=== PATIENT | female | born 1980 | race Caucasian/White ===

== ENCOUNTER 2016-11-03 09:48 | Emergency (ER) | payer SELFPAY ==
[~2016-11-03] VITALS: Ht 180.3 cm; Wt 140.6 kg
[~2016-11-03 09:48] MED LIST: AZIT500T PO; BENZ100C PO; HTN MED; PROAIR HFA8.5 GM INH
[2016-11-03 10:25] VITALS: BP 160/87
[2016-11-03 10:42] LABS: BILIRUBIN,URINE NEGATIVE (NEG); GLUCOSE,URINE NEGATIVE (NEG); NITRITE,URINE NEGATIVE (NEG); PH,URINE 6.5; PROTEIN,URINE NEGATIVE (NEG-TRACE); UROBILINOGEN,URINE 0.2 mg/dL (0.2 mg/dL)
--- NOTE | 2016-11-03 11:02 | PHYS DOC ---
Past Medical History Past Medical History: Anxiety, Hypertension Additional Past Medical Histor: insomnia Past Surgical History: Cholecystectomy, Alcohol Use: Occasionally Drug Use: None Adult General Chief Complaint Chief Complaint: ABDOMINAL PAIN HPI HPI Patient is a 36 year old female presents to emergency department stating that she has had upper abdominal pain for the last week. She states that she's been taking Zantac, Tums and Rolaids to help with the indigestion as well as sour stomach. She states that she also has some abdominal cramping after each meal. She states that she has had loose stools for the last 2 months. She also states that she started [employer] 2 months ago. Patient states that she feels that she has gas frequently. She does state that she's been having a lot of fruits and vegetables. Patient denies any fever, chills she states that she does not vomit. She just states that she has had nausea and upset stomach feeling. Patient states she did primary care physician who recommended she come to the emergency department. However did provide her with an appointment for tomorrow. Review of Systems Review of Systems Constitutional: Denies fever or chills [] Eyes: Denies change in visual acuity, redness, or eye pain [] HENT: Denies nasal congestion or sore throat [] Respiratory: Denies cough or shortness of breath [] Cardiovascular: No additional information not addressed in HPI [] GI: upper abdominal pain, nausea, denies omiting, bloody stools or diarrhea [] : Denies dysuria or hematuria [] Musculoskeletal: Denies back pain or joint pain [] Integument: Denies rash or skin lesions [] Neurologic: Denies headache, focal weakness or sensory changes [] Endocrine: Denies polyuria or polydipsia [] Current Medications Current Medications Current Medications Medications (Trade) Dose Ordered Sig/[facility] Start Time Stop Time Status Last Admin Dose Admin Sucralfate (Carafate) 1 gm 1X ONCE 11/03/16 12:00 11/03/16 12:01 Allergies Allergies Allergies Coded Allergies Type Severity Reaction Last Updated Verified No Known Drug Allergies 08/07/15 No Physical Exam Physical Exam Constitutional: Well developed, well nourished, no acute distress, non-toxic appearance. [] HENT: Normocephalic, atraumatic, bilateral external ears normal, oropharynx moist, no oral exudates, nose normal. [] Eyes: PERRLA, EOMI, conjunctiva normal, no discharge. [] Neck: Normal range of motion, no tenderness, supple, no stridor. [] Cardiovascular:Heart rate regular rhythm, no murmur [] Lungs & Thorax: Bilateral breath sounds clear to auscultation [] Abdomen: Bowel sounds normal, soft, mid upper abdominal tenderness, no masses, no pulsatile masses. [] Skin: Warm, dry, no erythema, no rash. [] Back: No tenderness Extremities: No tenderness, no cyanosis, no clubbing, ROM intact, no edema. [] Neurologic: Alert and oriented X 3, normal motor function, normal sensory function, no focal deficits noted. [] Psychologic: Affect normal, judgement normal, mood normal. [] Current Patient Data Vital Signs Vital Signs Date Time Temp Pulse Resp B/P (MAP) Pulse Ox O2 Delivery O2 Flow Rate FiO2 11/03/16 10:25 99.0 87 22 160/87 (111) 96 99.0 Lab Values Laboratory Tests Test 11/03/16 10:18 Urine Collection Type Void Urine Color Yellow Urine Clarity Cloudy Urine pH 6.5 Urine Specific [place] >=1.030 Urine Protein Negative mg/dL (NEG-TRACE) Urine Glucose (UA) Negative mg/dL (NEG) Urine Ketones (Stick) Negative mg/dL (NEG) Urine Blood Moderate (NEG) Urine Nitrite Negative (NEG) Urine Bilirubin Negative (NEG) Urine Urobilinogen Dipstick 0.2 mg/dL (0.2 mg/dL) Urine Leukocyte Esterase Negative (NEG) Urine RBC 0 /HPF (0-2) Urine WBC 1-4 /HPF (0-4) Urine Squamous Epithelial Cells Mod /LPF Urine Amorphous Sediment Present /HPF Urine Bacteria Few /HPF (0-FEW) Urine Mucus Marked /LPF EKG EKG [] Radiology/Procedures Radiology/Procedures [] Course & Med Decision Making Course & Med Decision Making Pertinent Labs and Imaging studies reviewed. (See chart for details) Urine was negative, was negative. Patient was awaiting for an acute abdominal series. She chose to leave AGAINST MEDICAL ADVICE. Patient had been encouraged to use Nexium [id number]. Patient states that she'll follow up with her primary care physician tomorrow. [] Dragon Disclaimer Dragon Disclaimer This electronic medical record was generated, in whole or in part, using a voice recognition dictation system. Departure Departure Impression: Primary Impression: Left against medical advice Additional Impression: Abdominal pain Disposition: 07 AGAINST MEDICAL ADVICE Condition: STABLE Referrals: UNKNOWN PCP NAME (PCP) Problem Qualifiers ALFONSO GRIGGS APRN November 03, 2016 11:02
[2016-11-03 11:04] LABS: BACTERIA,URINE FEW /HPF (0-FEW); RBC,URINE 0 /HPF (0-2); SQUAMOUS EPITHELIAL CELL,UR MOD /LPF
[2016-11-03] MEDS ORDERED: SUCRALFATE 1 GM/10 ML ORAL.SUSP. PO ONE (12:00)
== END 2016-11-03 11:55 | disposition left against medical advice (07) ==
LOC: ER 09:48
DX: R10.10 Upper abdominal pain, unspecified (principal); F41.9 Anxiety disorder, unspecified; I10 Essential (primary) hypertension; G47.00 Insomnia, unspecified; Z90.49 Acquired absence of other specified parts of digestive tract
CPT/HCPCS: 81001; 81025; 84703; 99283

== ENCOUNTER 2017-02-21 01:51 | Emergency (ER) | payer SELFPAY ==
[~2017-02-21] VITALS: Ht 180.3 cm; Wt 136.1 kg
[2017-02-21 02:35] VITALS: BP 151/90
[2017-02-21] MEDS ORDERED: IPRATRPIUM/ALBUTEROL 0.5/2.5MG 3 ML NEBU. NEB ONE (02:45)
[2017-02-21] MEDS ORDERED: BENZ100C PO (03:11)
[2017-02-21] MEDS ORDERED: PROAIR HFA8.5 GM INH (03:11)
--- NOTE | 2017-02-21 03:11 | PHYS DOC ---
Past Medical History Past Medical History: Anxiety, Hypertension Additional Past Medical Histor: insomnia Past Surgical History: Cholecystectomy, Additional Information: non smoker Alcohol Use: Occasionally Drug Use: None Adult General Chief Complaint Chief Complaint: COUGH HPI HPI Patient is a 37 year old female who presents with cough. States the cough for at least a week now. She initially had a temperature but none now. She states "everyone in my house is sick and now it's my turn". She is not coughing up anything, no hemoptysis. She has a slight sore throat. No earache. No shortness of air or chest pain. No leg pain or swelling. Non smoker. Review of Systems Review of Systems Constitutional: Denies fever or chills Eyes: Denies change in visual acuity, redness, or eye pain HENT: Denies nasal congestion or sore throat Respiratory: POS cough ; no shortness of breath Cardiovascular: No chest pain GI: Denies abdominal pain, nausea, vomiting, bloody stools or diarrhea : Denies dysuria or hematuria Musculoskeletal: Denies back pain or joint pain Integument: Denies rash or skin lesions Neurologic: Denies headache, focal weakness or sensory changes Current Medications Current Medications Current Medications Medications (Trade) Dose Ordered Sig/Brad Start Time Stop Time Status Last Admin Dose Admin Albuterol/ Ipratropium (Duoneb) 3 ml 1X ONCE 02/21/17 02:45 02/21/17 03:01 DC 02/21/17 02:47 3 ML Benzonatate (Tessalon Perle) 100 mg 1X ONCE 02/21/17 03:15 02/21/17 03:16 Allergies Allergies Allergies Coded Allergies Type Severity Reaction Last Updated Verified No Known Drug Allergies 08/07/15 No Physical Exam Physical Exam Constitutional: Well developed, well nourished, no acute distress, non-toxic appearance. HENT: Normocephalic, atraumatic, TM clear bilaterally; bilateral external ears normal, oropharynx moist, no oral exudates, nose normal. Eyes: PERRLA, EOMI, conjunctiva normal, no discharge. Neck: Normal range of motion, no tenderness, supple, no stridor. Cardiovascular:Heart rate regular rhythm, no murmur Lungs & Thorax: Bilateral breath sounds with faint end-expiratory wheeze. Skin: Warm, dry, no erythema, no rash. Extremities: No tenderness, no cyanosis, no clubbing, ROM intact, no edema. Neurologic: Alert and oriented X 3, normal motor function, normal sensory function, no focal deficits noted. Current Patient Data Vital Signs Vital Signs Date Time Temp Pulse Resp B/P (MAP) Pulse Ox O2 Delivery O2 Flow Rate FiO2 02/21/17 02:50 96 Room Air 02/21/17 02:35 97.5 96 20 97.5 Course & Med Decision Making Course & Med Decision Making Patient's complaints and physical exam are consistent with a viral bronchial infection. As per the recommendations from the CDC she does not meet criteria for an antibiotic at this time. A DuoNeb treatment was dosed here in the ED along with Tessalon Perles. She'll be sent home with a prescription for an inhaler and Tessalon Perles. She does not improve she needs follow-up with her primary care doctor. I have spoken with the patient and/or caregivers. I have explained the patient' s condition, diagnosis and treatment plan based on the information available to me at this time. I have answered the patient's and/or caregiver's questions and addressed any concerns. The patient and/or caregivers have as good an understanding of the patient's diagnosis, condition and treatment plan as can be expected at this point. The patient's condition is stable and appropriate for discharge from the emergency department. The patient will pursue further outpatient evaluation with the primary care physician or other designated or consulting physician as outlined in the discharge instructions. The patient and/or caregivers are agreeable to this plan of care and follow-up instructions have been explained in detail. The patient and/or caregivers have received these instructions in written format and have expressed an understanding of the discharge instructions. The patient and/or caregivers are aware that any significant change in condition or worsening of symptoms should prompt an immediate return to this or the closest emergency department or a call to 911. Yaneth Disclaimer Dragon Disclaimer This electronic medical record was generated, in whole or in part, using a voice recognition dictation system. Departure Departure Impression: Primary Impression: Cough Disposition: 01 HOME, SELF-CARE Condition: STABLE Referrals: UNKNOWN PCP NAME (PCP) Patient Instructions: Cough, Adult Scripts Albuterol Sulfate (PROAIR HFA INHALER) 8.5 Gm Hfa.aer.ad 1 PUFF INH PRN Q6HRS Y for SHORTNESS OF BREATH, #1 INHALER 0 Refills Prov: YOU CORREA MD 02/21/17 Benzonatate (TESSALON PERLE) 100 Mg Capsule 1 CAP PO TID, #30 CAP Prov: YOU CORREA MD 02/21/17 YOU CORREA MD Feb 21, 2017 03:11
[2017-02-21] MEDS ORDERED: BENZONATATE 100 MG CAPSULE. PO ONE (03:15)
== END 2017-02-21 03:28 | disposition home or self-care (01) ==
LOC: ER 01:51
DX: R05 Cough (principal); J02.9 Acute pharyngitis, unspecified; F41.9 Anxiety disorder, unspecified; I10 Essential (primary) hypertension; G47.00 Insomnia, unspecified
CPT/HCPCS: 94250; 94640; 99283; J7620

== ENCOUNTER 2017-07-03 17:14 | Emergency (ER) | payer SELFPAY | END 2017-07-03 18:11 | disposition home or self-care (01) | LOC: ER 17:14 | DX: J20.9 Acute bronchitis, unspecified (principal); I10 Essential (primary) hypertension; F41.9 Anxiety disorder, unspecified; G47.00 Insomnia, unspecified; Z90.49 Acquired absence of other specified parts of digestive tract | CPT/HCPCS: 99283 ==

== ENCOUNTER 2017-07-10 23:19 | Emergency (ER) | payer SELFPAY ==
[2017-07-10] MEDS: IPRATRPIUM/ALBUTEROL 0.5/2.5MG 3 ML NEBU. NEB (23:40)
[2017-07-10 23:46] LABS: URINE HCG POC HCG NEGATIVE (Negative)
[2017-07-10 23:52] LABS: INFLUENZA A PATIENT NEGATIVE (NEGATIVE); INFLUENZA B PATIENT NEGATIVE (NEGATIVE); OBC FLU VALID
[2017-07-11] MEDS: BENZONATATE 100 MG CAPSULE. PO
== END 2017-07-11 00:16 | disposition home or self-care (01) ==
LOC: ER 07-11 00:16
DX: J40 Bronchitis, not specified as acute or chronic (principal); I10 Essential (primary) hypertension; F41.9 Anxiety disorder, unspecified; G47.00 Insomnia, unspecified; Z90.49 Acquired absence of other specified parts of digestive tract
CPT/HCPCS: 71046; 81025; 87804; 87804-59; 94640; 99285-25; J7620

== ENCOUNTER 2017-09-21 18:27 | Emergency (ER) | payer SELFPAY ==
[2017-09-21 19:24] LABS: URINE HCG POC HCG NEGATIVE (Negative)
[2017-09-21 19:39] LABS: BILIRUBIN,URINE NEGATIVE (NEG); CLARITY,URINE CLOUDY; COLOR,URINE YELLOW; GLUCOSE,URINE NEGATIVE (NEG); NITRITE,URINE NEGATIVE (NEG); PH,URINE 5.5; PROTEIN,URINE NEGATIVE (NEG-TRACE); UROBILINOGEN,URINE 0.2 mg/dL (0.2 mg/dL)
[2017-09-21 19:44] LABS: ADD MAN DIFF? NO
[2017-09-21 19:47] LABS: BASO # 0.1 x10^3/uL (0.0-0.2); BASO % 1 % (0-3); EOS # 0.1 x10^3/uL (0.0-0.7); EOS % 1 % (0-3); HEMATOCRIT 41.3 % (36.0-47.0); HEMOGLOBIN 13.7 g/dL (12.0-15.5); LYMPH # 3.7 x10^3/uL (1.0-4.8); LYMPH % 32 % (24-48); MEAN CORPUSCULAR HEMOGLOBIN 26 pg (25-35); MEAN CORPUSCULAR HGB CONC 33 g/dL (31-37); MEAN CORPUSCULAR VOLUME 79 fL (79-100); MONO # 0.7 x10^3/uL (0.0-1.1); MONO % 7 % (0-9); NEUT # 6.8 x10^3uL (1.8-7.7); NEUT % 59 % (31-73); PLATELET COUNT 394 x10^3/uL (140-400); RED BLOOD COUNT 5.25 x10^6/uL (3.50-5.40); RED CELL DISTRIBUTION WIDTH 14.7 % (11.5-14.5); WHITE BLOOD COUNT 11.5 x10^3/uL (4.0-11.0)
[2017-09-21 19:49] LABS: BACTERIA,URINE MODERATE /HPF (0-FEW); RBC,URINE 0 /HPF (0-2); SQUAMOUS EPITHELIAL CELL,UR MANY /LPF
[2017-09-21 20:00] LABS: ANION GAP 13 (6-14); BLOOD UREA NITROGEN 14 mg/dL (7-20); BUN/CREATININE RATIO 18 (6-20); CALCIUM 9.3 mg/dL (8.5-10.1); CARBON DIOXIDE 23 mmol/L (21-32); CHLORIDE 101 mmol/L (98-107); CREATININE 0.8 mg/dL (0.6-1.0); GFR 80.7; GLUCOSE 103 mg/dL (70-99); POTASSIUM 3.7 mmol/L (3.5-5.1); SODIUM 137 mmol/L (136-145)
[2017-09-21 20:05] LABS: ALBUMIN 3.6 g/dL (3.4-5.0); ALBUMIN/GLOBULIN RATIO 0.8 (1.0-1.7); ALK PHOS 67 U/L (46-116); ALT (SGPT) 33 U/L (14-59); AST (SGOT) 16 U/L (15-37); TOTAL BILIRUBIN 0.3 mg/dL (0.2-1.0); TOTAL PROTEIN 8.1 g/dL (6.4-8.2)
== END 2017-09-21 22:01 | disposition home or self-care (01) ==
LOC: ER 18:27
DX: N39.0 Urinary tract infection, site not specified (principal); F41.9 Anxiety disorder, unspecified; I10 Essential (primary) hypertension; E66.9 Obesity, unspecified; G47.00 Insomnia, unspecified; Z68.41 Body mass index [BMI] 40.0-44.9, adult; Z90.49 Acquired absence of other specified parts of digestive tract
CPT/HCPCS: 36415; 76830; 76856; 80053; 81001; 81025; 84702; 85025; 87086; 99285-25

== ENCOUNTER 2017-10-10 20:37 | Emergency (ER) | payer SELFPAY ==
[2017-10-10 21:53] LABS: ADD MAN DIFF? NO
[2017-10-10 21:56] LABS: BASO # 0.1 x10^3/uL (0.0-0.2); BASO % 1 % (0-3); EOS # 0.1 x10^3/uL (0.0-0.7); EOS % 2 % (0-3); HEMATOCRIT 39.6 % (36.0-47.0); HEMOGLOBIN 13.2 g/dL (12.0-15.5); LYMPH # 3.6 x10^3/uL (1.0-4.8); LYMPH % 37 % (24-48); MEAN CORPUSCULAR HEMOGLOBIN 26 pg (25-35); MEAN CORPUSCULAR HGB CONC 33 g/dL (31-37); MEAN CORPUSCULAR VOLUME 78 fL (79-100); MONO # 0.7 x10^3/uL (0.0-1.1); MONO % 8 % (0-9); NEUT # 5.1 x10^3uL (1.8-7.7); NEUT % 52 % (31-73); PLATELET COUNT 380 x10^3/uL (140-400); RED BLOOD COUNT 5.06 x10^6/uL (3.50-5.40); RED CELL DISTRIBUTION WIDTH 14.1 % (11.5-14.5); WHITE BLOOD COUNT 9.7 x10^3/uL (4.0-11.0)
[2017-10-10] MEDS ORDERED: 0.9 % SODIUM CHLORIDE 10 ML DISP.SYRIN. IV (22:00)
[2017-10-10 22:08] LABS: ANION GAP 9 (6-14); BLOOD UREA NITROGEN 18 mg/dL (7-20); BUN/CREATININE RATIO 26 (6-20); CALCIUM 8.7 mg/dL (8.5-10.1); CARBON DIOXIDE 27 mmol/L (21-32); CHLORIDE 102 mmol/L (98-107); CREATININE 0.7 mg/dL (0.6-1.0); GFR 94.2; GLUCOSE 97 mg/dL (70-99); POTASSIUM 3.6 mmol/L (3.5-5.1); SODIUM 138 mmol/L (136-145)
[2017-10-10 22:09] LABS: D-DIMER < 0.27 ug/mlFEU (0.00-0.50)
[2017-10-10 22:14] LABS: ALBUMIN 3.5 g/dL (3.4-5.0); ALBUMIN/GLOBULIN RATIO 0.9 (1.0-1.7); ALK PHOS 58 U/L (46-116); ALT (SGPT) 29 U/L (14-59); AST (SGOT) 19 U/L (15-37); LIPASE 144 U/L (73-393); TOTAL BILIRUBIN 0.2 mg/dL (0.2-1.0); TOTAL PROTEIN 7.6 g/dL (6.4-8.2)
[2017-10-10 22:15] LABS: TROPONINI < 0.017 ng/mL (0.000-0.055)
[2017-10-10 22:23] LABS: CKMB MASS 0.5 ng/mL (0.0-3.6); CREATINE KINASE 69 U/L (26-192)
[2017-10-10 22:23] LABS: NT-PRO BNP 25 pg/mL (0-124)
[2017-10-10] MEDS: ASPIRIN CHEWABLE 81 MG TABLET. PO (22:41)
[2017-10-10 23:49] LABS: URINE HCG POC HCG NEGATIVE (Negative)
[2017-10-10 23:49] LABS: BILIRUBIN,URINE NEGATIVE (NEG); COLOR,URINE YELLOW; GLUCOSE,URINE NEGATIVE (NEG); NITRITE,URINE NEGATIVE (NEG); PROTEIN,URINE NEGATIVE (NEG-TRACE); UROBILINOGEN,URINE 0.2 mg/dL (0.2 mg/dL)
[2017-10-10 23:51] LABS: TROPONIN BY ISTAT 0.01 ng/ml (<0.08)
[2017-10-10 23:52] LABS: CLARITY,URINE CLEAR
[2017-10-10 23:56] LABS: BACTERIA,URINE MODERATE /HPF (0-FEW); RBC,URINE 0 /HPF (0-2); SQUAMOUS EPITHELIAL CELL,UR MANY /LPF; WBC,URINE RARE /HPF (0-4)
== END 2017-10-11 | disposition home or self-care (01) ==
LOC: ER 10-11
DX: R07.89 Other chest pain (principal); I10 Essential (primary) hypertension; F41.9 Anxiety disorder, unspecified; E66.9 Obesity, unspecified
CPT/HCPCS: 36415; 71045; 80053; 81001; 81025; 82553; 83690; 83880; 84484; 85025; 85379; 87086; 93005; 99285-25

== ENCOUNTER 2018-10-02 16:39 | Emergency (ER) | payer OTHER ==
[~2018-10-02] VITALS: Ht 180.3 cm; Wt 134.3 kg
[~2018-10-02 16:39] MED LIST changes: +ALBU2.5V8 INH; +AZIT250T PO; +FAMO40TA57 PO; +GUAI118L20 PO; +PRED50TA PO; -PROAIR HFA8.5 GM INH; +PROAIR RESPICL90 MCG IH; +SULF1TAB24 PO
[2018-10-02 18:06] VITALS: BP 133/74
[2018-10-02] MEDS ORDERED: HYDR-3164 PO (18:28)
--- NOTE | 2018-10-02 18:29 | PHYS DOC ---
Past Medical History Past Medical History: Anxiety, Hypertension, Other Additional Past Medical Histor: insomnia, OBESITY (GIN THOMPSON APRN) Past Surgical History: Cholecystectomy, , Other Additional Past Surgical Histo: gastric bypass (GIN THOMPSON APRN) Alcohol Use: None Drug Use: None (GIN THOMPSON APRN) Adult General Chief Complaint Chief Complaint: SORE THROAT HPI HPI 38-year-old female presents to ER via POV for complaints of sore throat and generalized fatigue. She reports her symptoms started on Tuesday and her daughter was just diagnosed with strep throat. She reports her throat has been swollen but she has been able to swallow. She denies chest pain, palpitations, shortness of air, or cough. She denies any other flulike illness. She reports she has taken Tylenol with minimal relief in pain. She reports she does not have regular menstrual cycles d/t control- no concern for preg. (GIN THOMPSON APRN) Review of Systems Review of Systems Constitutional: Reports chills and generalized fatigue/achy feeling Eyes: Denies change in visual acuity, redness, or eye pain [] HENT: Denies nasal congestion. Reports sore/swollen throat- denies inability to swallow secretions. Reports rt ear pressure/ache Respiratory: Denies cough or shortness of breath [] Cardiovascular: No additional information not addressed in HPI [] GI: Denies abdominal pain, nausea, vomiting, bloody stools or diarrhea [] : Denies urinary sxs Musculoskeletal: Denies back/neck pain or joint pain [] Integument: Denies rash or skin lesions [] Neurologic: Denies headache, focal weakness or sensory changes. Denies dizziness Endocrine: Denies polyuria or polydipsia [] All other systems were reviewed and found to be within normal limits, except as documented in this note. (GIN THOMPSON APRN) Current Medications Current Medications Current Medications Medications (Trade) Dose Ordered Sig/Brad Start Time Stop Time Status Last Admin Dose Admin Dexamethasone Sodium Phosphate (Decadron) 10 mg 1X ONCE 10/02/18 18:30 10/02/18 18:31 DC 10/02/18 18:38 10 MG Penicillin G Benzathine (Bicillin L-A) 1,200,000 unit 1X ONCE 10/02/18 18:30 10/02/18 18:31 DC 10/02/18 18:40 1,200,000 UNIT (NAEL HYATT DO) Allergies Allergies Allergies Coded Allergies Type Severity Reaction Last Updated Verified No Known Drug Allergies 08/07/15 No (NAEL HYATT DO) Physical Exam Physical Exam Constitutional: Well developed, well nourished, fatigued appearance, non-toxic appearance. [] HENT: Normocephalic, atraumatic, rt ear exam NL- lt ear with mild erythema at TM without bulging/perforation and no drainage in canal, oropharynx moist- bilat tonsillar swelling/erythema- rt tonsil more swollen with exudate- uvula midline with mild erythema- no exudate, nose normal. No muffled voice or pooling of secretions Eyes: Pupils equal, conjunctiva normal, no discharge. [] Neck: Normal range of motion, no tenderness or nuchal rigidity, supple, no stridor/gross adenopathy Cardiovascular: Heart rate regular rhythm, no murmur [] Lungs & Thorax: Bilateral breath sounds clear to auscultation- resp. equal/ nonlabored Abdomen: Bowel sounds normal, soft, no tenderness Skin: Warm, dry, no erythema, no rash. [] Back: No tenderness, no CVA tenderness. [] Extremities: No tenderness, no cyanosis, no clubbing, ROM intact, no edema. [] Neurologic: Alert and oriented X 3, normal motor function, normal sensory function, no focal deficits noted. [] Psychologic: Affect normal, judgement normal, mood normal. [] (GIN THOMPSON APRN) Current Patient Data Vital Signs Vital Signs Date Time Temp Pulse Resp B/P (MAP) Pulse Ox O2 Delivery O2 Flow Rate FiO2 10/02/18 18:06 99.8 98 20 133/74 (93) 98 Room Air 99.8 (NAEL HYATT DO) EKG EKG [] (GIN THOMPSON APRN) Radiology/Procedures Radiology/Procedures [] (GIN THOMPSON APRN) Course & Med Decision Making Course & Med Decision Making She was evaluated in the ER for complaints of sore throat and generalized fatigue. Patient's daughter was just diagnosed with strep throat and on exam patient had swelling to the tonsils with right side worse than the left. Patient had exudate on her right tonsil without visible peritonsillar abscess. Patient had no gross adenopathy on exam. Patient was given option for treatment while in the ER or prescription for home- she opted for IM penicillin injection while in the ER. She is comfortable with no strep test with this provider's finding on exam of swelling and exudate to right tonsil. She has had previous gastric bypass so is avoiding NSAIDs. Will give patient a dose of Decadron while in the ER and provide prescription for [place] tablets for home as she drove. Patient encouraged to do warm salt swishes.Education provided on signs and symptoms to return to ER. Discharge instructions were discussed. Patient to follow-up with primary care physician if symptoms persist or with any concerns. Patient while in the ER was having no pooling of secretions, difficulty swallowing, or respiratory distress. She was nontoxic in appearance. (GIN THOMPSON APRN) Dragon Disclaimer Dragon Disclaimer This electronic medical record was generated, in whole or in part, using a voice recognition dictation system. (GIN THOMPSON APRN) Departure Departure Impression: Primary Impression: Pharyngitis Disposition: , SELF-CARE Condition: STABLE Referrals: KIM AVINA JR, MD (PCP) Patient Instructions: Viral and Bacterial Pharyngitis Additional Instructions: Your strep throat was treated with a penicillin injection while in the Emergency Department. Continue warm salt swishes and tylenol if not taking the prescribed [place] tablets. Drink plenty of fluids. Follow-up with your primary care physician if symptoms persist or with concerns. Scripts Hydrocodone/Apap 5-325 (NORCO 5-325 TABLET) 1 Each Tablet 1 TAB PO PRN Q6HRS PRN for PAIN, #10 TAB 0 Refills No drinking or driving alcohol while taking this medication Prov: GIN THOMPSON APRN 10/02/18 Attending Signature Attending Signature I have reviewed the PA/BEST WORKER's note and plan of care. I was available for consultation as needed during the patient's visit in the emergency department. I agree with the clinical impression, plan, and disposition. (NAEL HYATT DO) GIN THOMPSON APRN Oct 02, 2018 18:29 NAEL HYATT DO Oct 05, 2018 11:31
[2018-10-02] MEDS ORDERED: PENICILLIN G BENZATHINE LA 1,200,000 UNIT/2 ML DISP.SYRIN. IM ONE (18:30)
[2018-10-02] MEDS ORDERED: DEXAMETHASONE SOD PHOS 20 MG/5 ML VIAL. PO ONE (18:30)
== END 2018-10-02 19:11 | disposition home or self-care (01) ==
LOC: ER 16:39
DX: J02.9 Acute pharyngitis, unspecified (principal); I10 Essential (primary) hypertension; E66.9 Obesity, unspecified; Z90.49 Acquired absence of other specified parts of digestive tract; Z68.41 Body mass index [BMI] 40.0-44.9, adult
CPT/HCPCS: 96372; 99283; J0561; J1100

== ENCOUNTER 2019-01-28 10:24 | Emergency (ER) | payer OTHER ==
[~2019-01-28] VITALS: Ht 180.3 cm; Wt 110.7 kg
[~2019-01-28 10:24] MED LIST changes: +HYDR-3164 PO
[2019-01-28 11:00] VITALS: BP 164/81
[2019-01-28 11:35] LABS: BILIRUBIN,URINE SMALL (NEG); CLARITY,URINE CLEAR; COLOR,URINE YELLOW; NITRITE,URINE NEGATIVE (NEG); PH,URINE 5.5; PROTEIN,URINE NEGATIVE (NEG-TRACE)
[2019-01-28 12:10] LABS: SQUAMOUS EPITHELIAL CELL,UR MOD /LPF
[2019-01-28 12:11] LABS: BACTERIA,URINE FEW /HPF (0-FEW); RBC,URINE 0 /HPF (0-2); WBC,URINE OCC /HPF (0-4)
[2019-01-28] MEDS ORDERED: METR500T PO (12:43)
--- NOTE | 2019-01-28 12:43 | PHYS DOC ---
Past Medical History Past Medical History: Anxiety, Hypertension, Other Additional Past Medical Histor: insomnia, OBESITY Past Surgical History: Cholecystectomy, , Other Additional Past Surgical Histo: gastric bypass Alcohol Use: None Drug Use: None Adult General Chief Complaint Chief Complaint: VAGINAL BLEEDING HPI HPI Patient is a 39 year old female who presents with complaining of vaginal bleeding. Patient states she started her menstruation 4 weeks ago and continued to have vaginal bleeding and even her vaginal bleeding getting better but she has dark-colored blood for the last few days with itching and foul smell of her discharge. Patient denies fever and chills, abdominal pain, nausea and vomiting, new sexual partner. Patient had gastric bypass in June and losing about 100 pounds so far and her surgeon told her she is going to have irregular menstruation. Patient used tampon for almost one month. Review of Systems Review of Systems Constitutional: Denies fever or chills [] Eyes: Denies change in visual acuity, redness, or eye pain [] HENT: Denies nasal congestion or sore throat [] Respiratory: Denies cough or shortness of breath [] Cardiovascular: No additional information not addressed in HPI [] GI: Denies abdominal pain, nausea, vomiting, bloody stools or diarrhea [] : Denies dysuria or hematuria [] Musculoskeletal: Denies back pain or joint pain [] Integument: Denies rash or skin lesions [] Neurologic: Denies headache, focal weakness or sensory changes [] Endocrine: Denies polyuria or polydipsia [] All other systems were reviewed and found to be within normal limits, except as documented in this note. Allergies Allergies Allergies Coded Allergies Type Severity Reaction Last Updated Verified No Known Drug Allergies 08/07/15 No Physical Exam Physical Exam Constitutional: Well developed, well nourished, no acute distress, non-toxic appearance. [] HENT: Normocephalic, atraumatic Eyes: PERRLA, EOMI, conjunctiva normal, no discharge. [] Neck: Normal range of motion, no tenderness, supple, no stridor. [] Cardiovascular:Heart rate regular rhythm, no murmur [] Lungs & Thorax: Bilateral breath sounds clear to auscultation [] Abdomen: Bowel sounds normal, soft, no tenderness, no masses, no pulsatile masses. Vaginal exam with present of computer systems technology instructor showed normal external genital, small amount of dark blood in vagina without cervical or adnexal tenderness. Back: No tenderness, no CVA tenderness. [] Extremities: No tenderness, no cyanosis, no clubbing, ROM intact, no edema. [] Neurologic: Alert and oriented X 3, normal motor function, normal sensory function, no focal deficits noted. [] Psychologic: Affect anxious, judgement normal, mood normal. [] Current Patient Data Vital Signs Vital Signs Date Time Temp Pulse Resp B/P (MAP) Pulse Ox O2 Delivery O2 Flow Rate FiO2 01/28/19 10:52 98.4 75 20 164/81 (108) 100 Room Air 98.4 Lab Values Laboratory Tests Test 01/28/19 10:40 01/28/19 10:48 Urine Collection Type Unknown Urine Color Yellow Urine Clarity Clear Urine pH 5.5 Urine Specific [place] 1.025 Urine Protein Negative mg/dL (NEG-TRACE) Urine Glucose (UA) Negative mg/dL (NEG) Urine Ketones (Stick) Negative mg/dL (NEG) Urine Blood Negative (NEG) Urine Nitrite Negative (NEG) Urine Bilirubin Small (NEG) Urine Urobilinogen Dipstick 1.0 mg/dL (0.2 mg/dL) Urine Leukocyte Esterase Small (NEG) Urine RBC 0 /HPF (0-2) Urine WBC Occ /HPF (0-4) Urine Squamous Epithelial Cells Mod /LPF Urine Bacteria Few /HPF (0-FEW) Urine Mucus Marked /LPF POC Urine HCG, Qualitative Hcg negative (Negative) Microbiology 01/28/19 Wet Prep - Final, Complete EKG EKG [] Radiology/Procedures Radiology/Procedures [] Course & Med Decision Making Course & Med Decision Making Pertinent Labs reviewed. (See chart for details) I've spoken with the patient and/or caregivers. I've explained the patient's condition, diagnosis and treatment plan based on information available to me at this time. I've answered the patient's and/or caregivers questions and addressed any concerns. The patient and/or caregivers have a good understanding the patient's diagnosis, condition and treatment plan as can be expected at this point. Vital signs have been stabilized. The patient's condition is stable for discharge from the emergency department. The patient will pursue further outpatient evaluation with her primary care provider or other designated consulting physician as outlined in the discharge instructions. Patient and/or caregivers are agreeable to this plan of care and f ollow-up instructions have been explained in detail. The patient and/or caregivers have received these instructions in written format and expressed understanding of these discharge instructions. The patient and her caregivers are aware that if any significant change in condition or worsening of symptoms should prompt him to immediately return to this of the closest emergency depart ment. If an emergent department is not readily available I would encourage him to call 911. Dragon Disclaimer Dragon Disclaimer This electronic medical record was generated, in whole or in part, using a voice recognition dictation system. Departure Departure Impression: Primary Impression: Bacterial vaginitis Disposition: HOME, SELF-CARE (at 1242) Condition: STABLE Referrals: KIM AVINA JR, MD (PCP) Patient Instructions: Cervicitis Additional Instructions: Drink plenty of liquids Follow-up with your primary care physician in 3-5 days Return to ER if not getting better Follow-up with your DOBBY LOOMS PEGGER for abnormal vaginal bleeding Scripts Metronidazole (FLAGYL) 500 Mg Tablet 1 TAB PO BID, #14 TAB Prov: ЕКАТЕРИНА DEWITT MD 01/28/19 ЕКАТЕРИНА DEWITT MD Jan 28, 2019 12:43
[2019-01-30 18:11] LABS: GC PROBE Negative (Negative)
== END 2019-01-28 13:10 | disposition home or self-care (01) ==
LOC: ER 10:24
DX: N76.0 Acute vaginitis (principal); B96.89 Other specified bacterial agents as the cause of diseases classified elsewhere; F41.9 Anxiety disorder, unspecified; I10 Essential (primary) hypertension; E66.9 Obesity, unspecified; Z68.34 Body mass index [BMI] 34.0-34.9, adult; Z90.49 Acquired absence of other specified parts of digestive tract; Z98.890 Other specified postprocedural states
CPT/HCPCS: 81001; 81025; 87086; 87491; 87591; 99284; Q0111

== ENCOUNTER 2019-04-15 09:33 | Emergency (ER) | payer OTHER ==
[~2019-04-15] VITALS: Ht 180.3 cm; Wt 102.5 kg
[~2019-04-15 09:33] MED LIST changes: +METR500T PO
[2019-04-15 09:50] VITALS: BP 143/88
[2019-04-15] MEDS ORDERED: AMOX1TAB61 PO (10:01)
[2019-04-15] MEDS ORDERED: TRIA10.8 NS (10:01)
--- NOTE | 2019-04-15 10:01 | PHYS DOC ---
Past Medical History Past Medical History: Anxiety, Hypertension, Other Additional Past Medical Histor: insomnia, OBESITY Past Surgical History: Cholecystectomy, , Other Additional Past Surgical Histo: gastric bypass Alcohol Use: None Drug Use: None Adult General Chief Complaint Chief Complaint: SORE THROAT HPI HPI Patient is a 39-year-old female who presents with complaint of sore throat, congestion and purulent nasal drainage for the last few days. She denies any fever. She does admit to a cough and feels like she's had a lot of congestion in this building up in her chest.[] Review of Systems Review of Systems Constitutional: Denies fever or chills [] HENT: Positive congestion and sore throat [] Respiratory: Positive cough without shortness of breath [] Cardiovascular: No additional information not addressed in HPI [] GI: Denies abdominal pain, nausea, vomiting or diarrhea [] Neurologic: Denies headache, focal weakness or sensory changes [] Allergies Allergies Allergies Coded Allergies Type Severity Reaction Last Updated Verified No Known Drug Allergies 08/07/15 No Physical Exam Physical Exam Constitutional: Well developed, well nourished, no acute distress, non-toxic appearance. [] HENT: Normocephalic, atraumatic, bilateral external ears normal, there is posterior pharyngeal erythema with cobblestoning. [] Neck: Normal range of motion, no tenderness, supple, no stridor. [] Cardiovascular:Heart rate regular rhythm, no murmur [] Lungs & Thorax: Bilateral breath sounds clear to auscultation [] Extremities: No tenderness, no cyanosis, no clubbing, ROM intact, no edema. [] Neurologic: Alert and oriented X 3, no focal deficits noted. [] EKG EKG [] Radiology/Procedures Radiology/Procedures [] Course & Med Decision Making Course & Med Decision Making Pertinent Labs and Imaging studies reviewed. (See chart for details) [] Dragon Disclaimer Dragon Disclaimer This electronic medical record was generated, in whole or in part, using a voice recognition dictation system. Departure Departure Impression: Primary Impression: Acute sinusitis Additional Impression: Pharyngitis Disposition: 01 HOME, SELF-CARE Condition: STABLE Referrals: KIM AVINA JR, MD (PCP) Patient Instructions: Sinusitis, Viral and Bacterial Pharyngitis Scripts Triamcinolone Acetonide (NASACORT) 10.8 Ml Anderson 2 SPRAY NS DAILY, #10.8 SPRAY Prov: JOSE PADILLA Jr. DO 04/15/19 Amoxicillin/Potassium Clav (AUGMENTIN 875-125 TABLET) 1 Each Tablet 1 TAB PO BID for 10 Days, #20 TAB 0 Refills Prov: JOSE PADILLA Jr. DO 04/15/19 Problem Qualifiers Primary Impression: Acute sinusitis Sinusitis location: unspecified location Recurrence: not specified as recurrent Qualified Codes: J01.90 - Acute sinusitis, unspecified Additional Impression: Pharyngitis Pharyngitis/tonsillitis etiology: unspecified etiology Qualified Codes: J02.9 - Acute pharyngitis, unspecified JOSE PADILLA Jr. DO Apr 15, 2019 10:01
== END 2019-04-15 10:05 | disposition home or self-care (01) ==
LOC: ER 09:33
DX: J01.90 Acute sinusitis, unspecified (principal); J20.9 Acute bronchitis, unspecified; I10 Essential (primary) hypertension; E66.9 Obesity, unspecified; Z68.31 Body mass index [BMI] 31.0-31.9, adult
CPT/HCPCS: 99283